=== PATIENT | female | born 2000 | race Asian ===

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

== ENCOUNTER 2021-08-05 03:28 | Emergency (ER) | payer OTHER ==
[~2021-08-05] VITALS: Ht 330.2 cm; Wt 138.3 kg
[2021-08-05 04:21] VITALS: BP 118/80; TEMP 98.7
== END 2021-08-05 04:21 | disposition home or self-care (01) ==
LOC: ED 03:28
DX: H60.8X1 Other otitis externa, right ear (principal)
CPT/HCPCS: 99282

== ENCOUNTER 2022-03-20 01:54 | Emergency (ER) | payer OTHER ==
[~2022-03-20] VITALS: Ht 170.2 cm; Wt 134.9 kg
[2022-03-20 02:40] LABS: PLATELET COUNT 289 K/uL (152-353)
[2022-03-20 02:49] LABS: POTASSIUM 3.9 mmol/L (3.6-5.2)
[2022-03-20 04:10] VITALS: BP 101/56; TEMP 98.3
== END 2022-03-20 04:10 | disposition home or self-care (01) ==
LOC: ED 01:54
PROVIDERS: Hospitalist
DX: N12 Tubulo-interstitial nephritis, not specified as acute or chronic (principal)
CPT/HCPCS: 36415; 80053; 80307; 81000; 81025; 83690; 85027; 87086; 87088; 96360; 96365; 96374; 99284; J0696; J1885; J2405